=== PATIENT | female | born 1990 | race Caucasian/White ===

== ENCOUNTER → 2021-09-24 | Day surgery (SDC) | payer OTHER ==
[~2021-09-24] MED LIST: ACETAMINOPHEN 1000 MG/100 ML 100 ML IV ONE; CLARITIN-D 241 EACH PO; DEXAMETHASONE SOD PHOS INJ 4 MG/ML SDV ONE; KETOROLAC TROMETHAMINE 30 MG/ML VIAL ONE; LIDOCAINE HCL 2% LOCAL INJ 5 ML SDV VIAL INJ ONE; MULTI-VITAMIN1 EACH PO; OFLOXACIN 0.3% (OTIC SOL) 5 ML BTL ONE; ONDANSETRON HCL INJ 2MG/ML 2ML 2 MG/ML VIAL ONE; POVIDONE IODINE 0.05% 0.05 % ML PO ONE; PROPOFOL IV EMULSION 10 MG/ML 20 ML VIAL ONE; SEVOFLURANE INHAL SOLN 250 ML PEN BTL ONE; TRAZODONE HCL50 MG PO; VYVANSE30 MG PO; ZINC PO
[2021-09-24 09:03] VITALS: BP 121/69
== END | disposition home or self-care (01) ==
LOC: OR 05:37
PROVIDERS: ATTEND Otolaryngology Otolaryngology/Facial Plastic Surgery
DX: H66.93 Otitis media, unspecified, bilateral (principal); H90.41 Sensorineural hearing loss, unilateral, right ear, with unrestricted hearing on the contralateral side; E66.01 Morbid (severe) obesity due to excess calories; F90.9 Attention-deficit hyperactivity disorder, unspecified type; F41.9 Anxiety disorder, unspecified; Z79.899 Other long term (current) drug therapy
CPT/HCPCS: 69436; 81025; J0131; J1885; J1100; J2001; J2405

== ENCOUNTER → 2025-06-01 | Outpatient (REF) | payer OTHER ==
[~2025-06-01] MED LIST changes: -ACETAMINOPHEN 1000 MG/100 ML 100 ML IV ONE; -DEXAMETHASONE SOD PHOS INJ 4 MG/ML SDV ONE; +IOPAMIDOL 370 MG/ML 100 ML INFUS..BTL INJ ONE; -KETOROLAC TROMETHAMINE 30 MG/ML VIAL ONE; -LIDOCAINE HCL 2% LOCAL INJ 5 ML SDV VIAL INJ ONE; +METOPROLOL TARTRATE 25 MG TAB ONE; +METOPROLOL TARTRATE INJ 1 MG/ML VIAL ONE; +NITROGLYCERIN 0.4 MG SUBL ONE; -OFLOXACIN 0.3% (OTIC SOL) 5 ML BTL ONE; -ONDANSETRON HCL INJ 2MG/ML 2ML 2 MG/ML VIAL ONE; -POVIDONE IODINE 0.05% 0.05 % ML PO ONE; -PROPOFOL IV EMULSION 10 MG/ML 20 ML VIAL ONE; -SEVOFLURANE INHAL SOLN 250 ML PEN BTL ONE; +SODIUM CHLORIDE 0.9% 100 ML ONE
== END ==
LOC: CT 07:52
PROVIDERS: ATTEND Internal Medicine Cardiovascular Disease
DX: R07.9 Chest pain, unspecified (principal)
CPT/HCPCS: 75574; J7050; Q9967